=== PATIENT | female | born 1985 | race Caucasian/White ===

== ENCOUNTER 2019-02-14 17:11 | Emergency (ER) | payer OTHER ==
[~2019-02-14] VITALS: Ht 160 cm; Wt 63.6 kg
[~2019-02-14 17:11] MED LIST: IBUP800T48 PO
[2019-02-14 17:27] VITALS: BP 132/88; PULSE 75; RESP 16; Ht 160 cm; Wt 63.6 kg
== END 2019-02-14 19:10 | disposition home or self-care (01) ==
LOC: FTE 17:11
DX: S82.65XA Nondisplaced fracture of lateral malleolus of left fibula, initial encounter for closed fracture (principal); X58.XXXA Exposure to other specified factors, initial encounter; Y92.9 Unspecified place or not applicable
CPT/HCPCS: 29515; Z7502